=== PATIENT | male | born 1950 ===

== ENCOUNTER 2016-12-02 07:14 | Day surgery (SDC) | payer MEDICARE ==
[2016-10-25 07:26] VITALS: BMI 26.6
[2016-12-02] MEDS ORDERED: Lactated Ringer's 500 ML IV ONE (10:15)
[2016-12-02] MEDS ORDERED: Gentamicin 160 MG in Sodium Chloride 0.9% 100 ML IVPB ONE (10:15)
[2016-12-02] MEDS ORDERED: Propofol 10 mg/ml Inj (20 ML) ONE (10:17)
[2016-12-02] MEDS ORDERED: cefTRIAXone IV 1 gm in Dextros 50 ML IVPB ONE (10:20)
[2016-12-02] MEDS ORDERED: Lidocaine 2% Jelly (Uro-Jet) ONE (10:30)
[2016-12-02] MEDS ORDERED: Midazolam 2 MG/2 ML VIAL ONE (10:39)
[2016-12-02] MEDS ORDERED: Lactated Ringer's 1,000 ML IV ONE (11:35)
[2016-12-02] MEDS ORDERED: Lactated Ringer's 1,000 ML IV SCH (11:45)
[2016-12-02 12:04] VITALS: BP 110/80; PULSE 87; RESP 18; TEMP 97.1; O2SAT 100
--- NOTE | 2016-12-02 21:00 | OP ---
PROCEDURE DATE: 12/02/2016 PREOPERATIVE DIAGNOSES: Elevated prostate-specific antigen, difficulty voiding, and benign prostatic hypertrophy. POSTOPERATIVE DIAGNOSIS: Elevated prostate-specific antigen, difficulty voiding, and benign prostatic hypertrophy. PROCEDURE: Cystoscopy, transrectal rectal ultrasound diagnostic, transrectal ultrasound guidance, and prostatic biopsy. SURGEON: Hi Mclean MD OPERATIVE PROCEDURE: The patient was told in the holding area via fruit i farmworker that in the event of fever or chills, he is to call me immediately or go to the local emergency room. Otherwise, he is to call my office later today for an appointment in 1 week. He was brought to the operating room and provided with gentamicin 160 mg and Rocephin 1 g IV piggyback prior to the procedure. We cleansed the rectum with Betadine as well. Cystoscopy was initially performed because of complaints of urinary difficulties. This confirmed a very enlarged median lobe that is clearly the source of his pathology. In addition, multiple and diffuse trabeculation with cellules was noted. No tumors or calculi or erythema were noted. I could not quite visualize the orifices because they were obscured by the median lobe. At this point, the bladder was emptied and the scope was removed. We turned our attention to transrectal ultrasound which was preformed with transducer. The total prostate volume was 26 mL with no focal lesions noted. We then performed prostate biopsies by dividing the prostate into 6 sections and obtaining 2 specimens per section for a total of 12 course. We then maintained moderate pressure with the transducer against the prostate to promote hemostasis for 5 minutes. Upon removal, no bleeding was noted. The patient tolerated the procedure well. Hi Mclean MD
== END 2016-12-02 12:45 | disposition home or self-care (01) ==
LOC: C.SDS 07:14
PROVIDERS: ATTEND Urology
DX: N40.1 Benign prostatic hyperplasia with lower urinary tract symptoms (principal); R97.20 Elevated prostate specific antigen [PSA]; R39.16 Straining to void
CPT/HCPCS: 55700; 88305; 88342; J0696; J1580; J7120

== ENCOUNTER 2017-05-03 12:21 | Emergency (ER) | payer MEDICARE ==
[2017-05-03 12:22] VITALS: BMI 26.6
[2017-05-03 12:30] VITALS: TEMP 97.8; O2SAT 98
[2017-05-03] MEDS ORDERED: Sodium Chloride 0.9% 1,000 ML IV ONE (13:12)
[2017-05-03] MEDS ORDERED: Sodium Chloride 0.9% 1,000 ML ONE (13:24)
[2017-05-03 13:41] LABS: BASO % 0.2 % (0.0-2.0); EOS % 0.1 % (0.0-4.0); HEMOGLOBIN 17.7 g/dL (12.0-18.0); LYMPH # 0.6 K/uL (1.0-4.3); LYMPH % 5.5 % (20.0-40.0); MEAN CELL VOLUME 93.6 fL (80.0-94.0); MEAN CORPUSCULAR HEMOGLOBIN 32.6 pg (27.0-31.0); MEAN CORPUSCULAR HGB CONC 34.8 g/dL (33.0-37.0); MEAN PLATELET VOLUME 9.6 fL (7.2-11.7); MONO # 0.6 K/uL (0.0-0.8); MONO % 5.7 % (0.0-10.0); NEUT # 9.9 K/uL (1.8-7.0); NEUT % 88.5 % (50.0-75.0); NRBC % 0.1 % (0.0-2.0); PLATELET COUNT 184 K/uL (130-400); RBC 5.44 Mil/uL (4.40-5.90); RED CELL DISTRIBUTION WIDTH 13.1 % (11.5-14.5); WHITE BLOOD COUNT 11.2 K/uL (4.8-10.8)
[2017-05-03 13:46] LABS: ALBUMIN 4.4 g/dL (3.5-5.0); ALT/SGPT 90 U/L (21-72); AST/SGOT 59 U/L (17-59); BLOOD UREA NITROGEN 27 mg/dL (9-20); CALCIUM 8.5 mg/dl (8.6-10.4); GFR AFRICAN-AMERICAN > 60; GFR NON-AFRICAN AMERICAN > 60; LIPASE 62 U/L (23-300)
--- NOTE | 2017-05-03 14:11 | C.PDOC ---
History Of Present Illness 66 y/o male presents to the ED c/o nausea, vomiting, and diarrhea since last night. The patient states that, "Everyone else ate the same food as he did and he was the only one that got sick." The patient denies dizziness, chills, sweats , and fever. Time Seen by Provider: 05/03/17 13:07 Chief Complaint (Nursing): Abdominal Pain Past Medical History Reviewed: Historical Data, Nursing Documentation, Vital Signs Vital Signs: Last Vital Signs Temp 97.8 F 05/03/17 12:27 Pulse 78 05/03/17 14:35 Resp 16 05/03/17 14:35 BP 114/64 05/03/17 14:35 Pulse Ox 98 05/03/17 14:36 - Medical History PMH: Benign Prostatic Hyperplasia, HTN, Hypercholesterolemia, TIA Denies: Chronic Kidney Disease Surgical History: No Surg Hx - [facility] Procedures CYSTOSCOPY NEC (07/01/13) Family History: States: No Known Family Hx - Social History Hx Tobacco Use: No Hx Alcohol Use: No Hx Substance Use: No - Immunization History Hx Tetanus Toxoid Vaccination: No Hx Influenza Vaccination: No Hx Pneumococcal Vaccination: No Review Of Systems Except As Marked, All Systems Reviewed And Found Negative. Constitutional: Negative for: Fever, Chills Cardiovascular: Negative for: Chest Pain Respiratory: Negative for: Cough, Shortness of Breath Gastrointestinal: Positive for: Nausea, Vomiting, Diarrhea. Negative for: Abdominal Pain Physical Exam - Physical Exam Appears: Non-toxic, No Acute Distress Skin: Warm, Dry Head: Atraumatic, Normacephalic Eye(s): bilateral: Normal Inspection Oral Mucosa: Moist Neck: Supple Chest: Symmetrical Cardiovascular: Rhythm Regular Respiratory: Normal Breath Sounds Gastrointestinal/Abdominal: Soft, No Tenderness, No Guarding, No Rebound Back: Normal Inspection Extremity: Normal ROM, Capillary Refill (2<sec.) Neurological/Psych: Oriented x3, Normal Speech, Normal Cognition Gait: Steady ED Course And Treatment - Laboratory Results Result Diagrams: 05/03/17 13:24 05/03/17 13:24 Lab Interpretation: Abnormal (mild leukocytosis) ECG: Interpreted By Mt ECG Rhythm: Sinus Rhythm ECG Interpretation: Normal Rate From EC O2 Sat by Pulse Oximetry: 98 (RA) Pulse Ox Interpretation: Normal Progress Note: pepcid, toradol, sofran, IVF Reevaluation Time: 14:15 Reassessment Condition: Improved (much better, symptoms resolved) Medical Decision Making Medical Decision Making: viral vs food born gastroenteritis resolved now BRAT diet educated. Disposition Doctor Will See Patient In The: Office Counseled Patient/Family Regarding: Studies Performed, Diagnosis - Disposition Referrals: Phylicia Murray MD [Medical Doctor] - Disposition: HOME/ ROUTINE Disposition Time: 14:16 Condition: GOOD Additional Instructions: carley muchos liquidos, te', Gatorade Dieta de BRAT: Bananas, arroz quiroz, manzana, tenorio Carley sopas Ibuprofeno 400-600 mg cada 6 horas tish necessario. Sigue con Dr. Murray tish necessario Instructions: Gastroenteritis (DC) Forms: Fiiiling (Greenlandic) Print Language: HAITIAN - Clinical Impression Clinical Impression: Gastroenteritis - Scribe Statement The provider has reviewed the documentation as recorded by the Scribe Eva Becerril
[2017-05-03 14:21] LABS: GIANT PLATELETS PRESENT; LARGE PLATELETS PRESENT; LYMPHOCYTE 3 % (20-40); MONOCYTE 5 % (0-10); NEUTROPHIL 92 % (50-75); PLATELET ESTIMATE NORMAL (NORMAL); TOTAL CELLS COUNTED 100
[2017-05-03 14:35] VITALS: BP 114/64; PULSE 78; RESP 16
--- NOTE | 2017-05-06 12:46 | CARD ---
APPROVED REPORT EKG Measurement Heart [id number] <Conclusion> Normal sinus rhythm Minimal voltage criteria for LVH, may be normal variant Borderline ECG
== END 2017-05-03 14:35 | disposition home or self-care (01) ==
LOC: C.ER 12:21
DX: K52.9 Noninfective gastroenteritis and colitis, unspecified (principal); E78.00 Pure hypercholesterolemia, unspecified; I10 Essential (primary) hypertension; N40.0 Benign prostatic hyperplasia without lower urinary tract symptoms; Z86.73 Personal history of transient ischemic attack (TIA), and cerebral infarction without residual deficits
CPT/HCPCS: 80053; 83690; 84484; 85025; 96361; 96374; 96375; 99284; J1885; J2405; J7040